=== PATIENT | male | born 1990 | race Caucasian/White ===

== ENCOUNTER 2023-10-16 16:00 | Emergency (ER) | payer MEDICAID ==
[~2023-10-16] VITALS: Ht 203.2 cm; Wt 106.6 kg
[2023-10-16] MEDS ORDERED: ACETAMINOPHEN ES 500 MG TABLET ONE (16:32)
[2023-10-16] MEDS ORDERED: ONDANSETRON 4 MG TAB.RAPDIS ONE (16:32)
[2023-10-16] MEDS ORDERED: IBUPROFEN 400 MG TABLET ONE (16:32)
[2023-10-16] MEDS: ONDANSETRON 4 MG TAB.RAPDIS PO ONE (16:35)
[2023-10-16] MEDS: ACETAMINOPHEN ES 500 MG TABLET PO ONE (16:41)
[2023-10-16] MEDS: IBUPROFEN 400 MG TABLET PO ONE (16:41)
[2023-10-16] MEDS ORDERED: ACET-2605 PO (18:09)
[2023-10-16] MEDS ORDERED: IBUP-1955 PO (18:09)
[2023-10-16] MEDS: LIDOCAINE 5% (PATCH) 1 EA PATCH TP ONE (18:29)
[2023-10-16 18:35] VITALS: BP 145/86; TEMP 98.3; O2SAT 98
== END 2023-10-16 18:36 | disposition home or self-care (01) ==
LOC: ER 16:12
DX: M54.2 Cervicalgia (principal); M25.512 Pain in left shoulder; R07.81 Pleurodynia; R07.9 Chest pain, unspecified; V43.62XA Car passenger injured in collision with other type car in traffic accident, initial encounter; Y93.89 Activity, other specified; Y92.89 Other specified places as the place of occurrence of the external cause; Y99.8 Other external cause status
CPT/HCPCS: 99285; 71100; 73030; Q0162